=== PATIENT | female | born 1980 | race Two or more races ===

== ENCOUNTER 2024-07-18 08:41 | Emergency (ER) | payer OTHER ==
[~2024-07-18] VITALS: Ht 162.6 cm; Wt 68.0 kg
[2024-07-18] MEDS ORDERED: KETOROLAC TROMETHAMINE 30 MG VIAL IM STA (09:31)
[2024-07-18] MEDS ORDERED: hydrOXYzine PAMOATE 50 MG CAPSULE PO STA (09:31)
[2024-07-18] MEDS ORDERED: METOCLOPRAMIDE HCL 5 MG/ML VIAL IM STA (09:31)
[2024-07-18] MEDS ORDERED: ORPHENADRINE CITRATE 30 MG/ML AMPUL IM STA (09:31)
[2024-07-18] MEDS ORDERED: hydrOXYzine PAMOATE 50 MG CAPSULE PO ONE (09:43)
[2024-07-18] MEDS ORDERED: METOCLOPRAMIDE HCL 5 MG/ML VIAL ONE (09:44)
[2024-07-18 10:39] LABS: HEMATOCRIT 39.2 % (36.0-45.00); MEAN CELL VOLUME 79.1 fL (80.00-100.00); MEAN CORPUSCULAR HEMOGLOBIN 26.2 pg (27.00-32.0); MEAN CORPUSCULAR HGB CONC 33.2 g/dl (32.0-36.0); PLATELET COUNT 301 K/uL (150-450); RED BLOOD COUNT 4.96 M/uL (4.00-6.00); RED CELL DISTRIBUTION WIDTH 14.1 % (11.5-14.5)
[2024-07-18 11:48] LABS: CALCIUM 8.9 mg/dL (8.5-10.1); CREATININE SERUM 0.69 mg/dL (0.55-1.02); POTASSIUM 4.13 mEq/L (3.5-5.1)
[2024-07-18 12:00] LABS: TSH 4.17 uIU/mL (0.358-3.74)
[2024-07-18] MEDS ORDERED: DICLOFENAC POTA50 MG PO (12:35)
[2024-07-18] MEDS ORDERED: NORFLEX100MG PO (12:35)
[2024-07-18] MEDS ORDERED: MEDROL4 MG PO (12:35)
[2024-07-18] MEDS ORDERED: HYDROXYZINE HCL25 MG PO (12:35)
== END 2024-07-18 13:42 | disposition home or self-care (01) ==
LOC: ER 08:44
PROVIDERS: General Practice
DX: R55 Syncope and collapse (principal); M54.2 Cervicalgia; Z91.013 Allergy to seafood; F41.0 Panic disorder [episodic paroxysmal anxiety]